=== PATIENT | male | born 1960 | race Caucasian/White ===

== ENCOUNTER 2019-11-10 07:13 | Day surgery (SDC) | payer BC ==
[~2019-11-10] VITALS: Ht 188 cm; Wt 102.8 kg
[~2019-11-10 07:13] MED LIST: ATOR20 PO; BUPR150ER PO; Flonase 0.05% N16 GM INH; MELO7.5 PO
--- NOTE | 2019-11-10 12:32 | NUR ---
11/10/19 1232 Yari Roblero DISCHARGE INSTRUCTIONS REVIEWED WITH PT. HE IS TOLERATING PO FLUIDS WELL AND VOICES NO CONCERNS. VSS.
== END 2019-11-10 09:25 | disposition home or self-care (01) ==
LOC: ORSCSDS 07:13
PROVIDERS: Internal Medicine Gastroenterology
PROC: 0DBL8ZX Excision of Transverse Colon, Via Natural or Artificial Opening Endoscopic, Diagnostic (ICD-10-PCS; principal; 2019-11-10 08:30)
PROC: 0DBN8ZX Excision of Sigmoid Colon, Via Natural or Artificial Opening Endoscopic, Diagnostic (ICD-10-PCS; principal; 2019-11-10 08:30)
PROC: 0DBK8ZX Excision of Ascending Colon, Via Natural or Artificial Opening Endoscopic, Diagnostic (ICD-10-PCS; principal; 2019-11-10 08:30)
DX: Z12.11 Encounter for screening for malignant neoplasm of colon (principal); K63.5 Polyp of colon; K64.8 Other hemorrhoids; K57.30 Diverticulosis of large intestine without perforation or abscess without bleeding; Z86.010 Personal history of colon polyps; E78.00 Pure hypercholesterolemia, unspecified; G47.33 Obstructive sleep apnea (adult) (pediatric); F41.9 Anxiety disorder, unspecified; Z87.891 Personal history of nicotine dependence; Z79.899 Other long term (current) drug therapy
CPT/HCPCS: 88305; J0461; J2405; J2704; J7120

== ENCOUNTER → 2020-09-21 | Outpatient (CLI) | payer BC ==
[2020-09-24 13:57] LABS: CORONAVIRUS (COVID19) CSH-NRL Negative (Negative)
== END | disposition home or self-care (01) ==
LOC: LAB EV 15:30 → LAB SHORT 15:30
PROVIDERS: Physician Assistant
DX: R50.9 Fever, unspecified (principal); N39.0 Urinary tract infection, site not specified; Z20.828 Contact with and (suspected) exposure to other viral communicable diseases
CPT/HCPCS: 87077; 87086; 87186; U0003

== ENCOUNTER → 2022-05-08 | Outpatient (CLI) | payer BC | END | disposition home or self-care (01) | LOC: LAB SHORT 10:48 → PLD 10:48 | DX: D48.5 Neoplasm of uncertain behavior of skin (principal) | CPT/HCPCS: 88305 ==

== ENCOUNTER → 2022-12-13 | Outpatient (CLI) | payer BC | END | disposition home or self-care (01) | LOC: LAB SHORT 14:57 → LAB 14:57 | DX: D48.5 Neoplasm of uncertain behavior of skin (principal) | CPT/HCPCS: 88305 ==